=== PATIENT | female | born 1990 | race Caucasian/White ===

== ENCOUNTER 2018-12-18 19:45 | Inpatient (IN) | payer OTHER ==
--- NOTE | 2018-12-18 20:56 | HP ---
Past Medical History - Admission History of Present Illness: 28 yo @ 40 3/7 days by first trimester ultrasound, EDC 12/15/2018 complicated by: 1. Maternal Obesity, Starting BMI 33 Weight gain total 13 lbs Most recent EFW 3484 (59%) 12/05/2018 Reassuring testing Early GCT 81 28 wk GCT 111 2. 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 Declines aneuploidy screening Patient presents with chief complaint of sponatneous leakage of clear fluid at 1400 today and irregular contractions. She reports movement and denies vaginal bleeding. She was confirmed ruptured upon presentation and was found to be 1 cm dilated. History Source: Patient Limitations to Obtaining History: No Limitations - Past Medical History Cardiovascular: No: HTN Pulmonary: No: Asthma ...: 1 ...Para: 0 ...EDC by Dates: 12/15/18 ...EDC by Sono: 12/15/18 Heme/Onc: No: Anemia - Past Surgical History Hx Myomectomy: No Hx Transabdominal Cerclage: No Additional Surgical History: Accessory navicular bone removal - Alcohol/Substance Use Hx Alcohol Use: No History of Substance Use: reports: None - Social History Usual Living Arrangement: Yes: With Spouse History of Recent Travel: No Home Medications - Allergies Allergies/Adverse Reactions: Allergies Allergy/AdvReac Type Severity Reaction Status Date / Time No Known Allergies Allergy Verified 12/18/18 21:00 Family Disease History - Family Disease History Family History: Denies Review of Systems - Review of Systems Constitutional: reports: No Symptoms Cardiovascular: reports: No Symptoms Respiratory: reports: No Symptoms Gastrointestinal: reports: No Symptoms Genitourinary: reports: No Symptoms Musculoskeletal: reports: No Symptoms Neurological: reports: No Symptoms Endocrine: reports: No Symptoms Psychiatric: reports: No Symptoms Physical Exam - Maternity Constitutional: Yes: Well Nourished, No Distress, Calm Cardiovascular: Yes: Regular Rate and Rhythm Lungs: Clear to auscultation - Abdominal Exam/OB Fundal Height: 40 Number of Fetuses: Single Presentation: Vertex Contractions: Yes Regularity: Irregular Intensity: Mild/Mod Monitor Mode: External Heart Rate (range): 140 Category: I Accelerations: Non-Uniform Decelerations: None - Vaginal Exam/OB Vaginal Bleediing: No Speculum Exam: No Nitrazine Test: Positive Amniotic Fluid: Yes: Clear - Physical Exam Psychiatric: Yes: Alert, Oriented - Labs Lab Results: PNL: A positive, antibody negative; RPR NR; HBS Ag negative; HIV negative; Rubella immune; Varicella immune; Parvo immune; GCT WNL (early and 28 wk); GBS neg; Inheritest Ashkenazi panel WNL Hemorrhage Risk Assessment - Risk Factors Medium Risk Factors: Yes: None High Risk Factors: Yes: None Risk Score: 1 Risk Level: Medium Risk Assessment/Plan 28 yo @ 40 + wks PROM, early labor 1. Admit to L&D 2. GBS negative 3. Decliens offer for pain medication 4. Will offer pain medication upon patient request
[2018-12-18] MEDS ORDERED: BUTORPHANOL TARTRATE 1 MG/ML VIAL IVPB ONE (21:10)
[2018-12-18] MEDS ORDERED: PROMETHAZINE HCL 25 MG/1 ML VIAL IVPUSH ONE (21:10)
[2018-12-18] MEDS ORDERED: ELECTROLYTE-148 SOLN 1,000 ML IV SCH (21:15)
[2018-12-18 21:55] LABS: BASO % 0.1 % (0-2.0); EOS % 0.2 % (0-4.5); HEMATOCRIT 30.5 % (32.4-45.2); HEMOGLOBIN 10.6 GM/dL (10.7-15.3); LYMPH % 14.3 % (8-40); MCH 29.3 pg (25.7-33.7); MCHC 34.8 g/dl (32.0-36.0); MEAN CELL VOLUME 84.2 fl (80-96); MEAN PLT VOLUME 8.8 fl (7.5-11.1); MONO % 5.4 % (3.8-10.2); PLATELET COUNT 212 K/MM3 (134-434); RBC 3.63 M/mm3 (3.60-5.2); WHITE BLOOD COUNT 16.2 K/mm3 (4.0-10.0)
[2018-12-18 22:09] LABS: INR 0.92 (0.83-1.09); PROTHROMBIN TIME (PATIENT) 10.8 SEC (9.7-13.0)
[2018-12-18 22:11] LABS: ACTIVATED PTT 25.1 SECONDS (25.2-36.5)
[2018-12-18 22:12] LABS: ANION GAP 7 MMOL/L (8-16); BLOOD UREA NITROGEN 9 mg/dL (7-18); CALCIUM 9.3 mg/dL (8.5-10.1); CHLORIDE 107 mmol/L (98-107); CO2 23 mmol/L (21-32); CREATININE 0.6 mg/dL (0.55-1.3); GLUCOSE,RANDOM 102 mg/dL (74-106); SODIUM 137 mmol/L (136-145)
[2018-12-18] MEDS ORDERED: BUTORPHANOL TARTRATE 1 MG/ML VIAL ONE ×2 (22:59)
[2018-12-18] MEDS ORDERED: PROMETHAZINE HCL 25 MG/1 ML VIAL ONE (23:00)
[2018-12-19] MEDS ORDERED: ONDANSETRON 4 MG/2 ML VIAL IVPB ONE (03:00)
[2018-12-19] MEDS ORDERED: FENTANYL/BUPIVACAINE/NS/PF - PCEA - 50 ML DISP.SYRIN EP ONE (03:11)
[2018-12-19] MEDS ORDERED: LIDO 2%/EPI 1:200000 PRESRVFRE (20 ML SDVIAL) ONE (03:13)
[2018-12-19] MEDS ORDERED: NALOXONE HCL 0.4 MG/ML VIAL IVPUSH PRN (03:18)
[2018-12-19] MEDS ORDERED: ONDANSETRON 4 MG/2 ML VIAL ONE ×2 (03:18→04:56)
[2018-12-19] MEDS ORDERED: FENTANYL/BUPIVACAINE/NS/PF - PCEA - 50 ML DISP.SYRIN EP SCH (03:30)
[2018-12-19] MEDS ORDERED: PHENYLEPHRINE HCL 10 MG/1 ML SINGLE DOSE VIAL ONE (03:40)
[2018-12-19] MEDS ORDERED: ePHEDrine SULFATE 50 MG/1 ML AMPULE ONE ×2 (04:44→07:08)
[2018-12-19] MEDS ORDERED: CITRIC ACID/SODIUM CITRATE 30 ML UNIT-DOSE CUP PO ONE (06:23)
--- NOTE | 2018-12-19 06:23 | PN ---
Ante-Partal Exam - Subjective Subjective: Called to patient bedside for persistent tachycardia 190s - 200s Mod variability Patient reports no pain with contractions Vital Signs: Vital Signs Temperature Pulse Rate 85 12/19/18 05:30 Respiratory Rate 18 12/19/18 05:30 Blood Pressure 121/59 L 12/19/18 05:30 O2 Sat by Pulse Oximetry (%) 100 12/19/18 05:30 Bleeding: No Headache: No Visual changes: No Right upper quadrant pain: No - Contractions Contractions: Yes Regularity: Regular Intensity: Mild/Mod Monitor Mode: External - Exam during Labor Heart Rate: 180 Variability: Moderate Category: I Monitor Accelerations: Absent Monitor Decelerations: None Exam: Vaginal Dilatation (cm): 3 Effacement (%): 70 Amniotic Membrane Status: Ruptured Station: -2 - Intrapartum Hemorrhage Risk Medium Risk Factors: None High Risk Factors: None Risk Score: 0 Risk Level: Low Risk - Assessment/Plan Assessment/Plan: 28 yo in early labor, s/p epidural with persistent tachycardia O2 via facemask given, change in maternal position to L lateral, R lateral and knee chest without improvement in heart rate Cervix 3 cm Contractions Q 5-7 minutes heart rate without improvemetn and remote from delivery Will plan for delivery Discussed risks including but not limited to infection, bleeding requiring transfusion and damage to surrounding organs such as the bowel or bladder. Discussed risk of injury to infant. Discussed risk of wound infection and separation. Discussed need for planning of future children and possibility of abnormal placentation. All questions answered. Patient expressed understanding. Nursing and OR staff notified. Will proceed to OR
[2018-12-19 06:53] VITALS: BMI 35.6
[2018-12-19] MEDS ORDERED: morphine SULFATE/Preservative Free 0.5 MG/ML (1cc Syringe) ONE ×4 (07:04)
[2018-12-19] MEDS ORDERED: KETOROLAC TROMETHAMINE 30 MG/1 ML VIAL ONE (07:07)
[2018-12-19] MEDS ORDERED: SODIUM CHLORIDE 0.9% P/F 10 ML VIAL IJ ONE (07:10)
[2018-12-19] MEDS ORDERED: ceFAZolin SODIUM 1 GM VIAL ONE (07:10)
[2018-12-19] MEDS ORDERED: OXYTOCIN 10 UNITS/ML VIAL ONE (07:18)
[2018-12-19] MEDS ORDERED: OXYTOCIN 20 UNITS in 0.9% NS 20 UNIT/1,000 ML INFUS.BAG IV ONE (07:32)
--- NOTE | 2018-12-19 08:16 | PN ---
"Delivery - Delivery Section: Primary Episiotomy/Laceration: None EBL (cc): 600 Delivery, Single - Condition of Infant Gender: Male Position: OP - 1 Minute Total Score: 9 5 Minutes Total Score: 9 - Feeding Plan Initial Plan: Exclusive throughout hospitalization Remarks - Remarks Remarks: Findings: male , 9,9; wt 7 lb 15 oz; 20.5 inches; normal tubes and ovaries bilaterally; nuchal cord x 3; OP position Surgeon: Brandin | Assist; LEV Mustafa | Anesthesia: Guon Fluids: 1300 | UOP: 300 Dx: Nonreassuring heart rate Dictation: [id number]"
[2018-12-19 09:11] LABS: ARTERIAL BLD GAS O2 SATURATION 4.5 % (90-98.9); ARTERIAL BLOOD GAS PCO2 62.9 mmHg (35-45); ARTERIAL BLOOD GAS PO2 6.8 mmHg (80-100); ARTERIAL BLOOD GAS pH 7.27 (7.35-7.45)
--- NOTE | 2018-12-19 09:13 | OP ---
DATE OF OPERATION: 12/19/2018 ATTENDING PHYSICIAN RESPONSIBLE FOR SIGNING REPORT: Adina Ghotra MD PREOPERATIVE DIAGNOSES: Intrauterine , 40+ weeks, nonreassuring tracing. POSTOPERATIVE DIAGNOSES: Intrauterine , 40+ weeks, nonreassuring tracing. SURGEON: Adina Ghotra MD ASSIST: LEV Mustafa ANESTHESIA: Buck Morrell MD FLUIDS GIVEN: 1300. URINE OUTPUT: 300. ESTIMATED BLOOD LOSS: 600. FINDINGS: Male , Apgars 9 and 9, weight 7 pounds 15 ounces, 20-1/2 inches. Normal tubes and ovaries bilaterally. Nuchal cord x3 and OP position. INDICATIONS: Patient is a 28-year-old 1, para 0 at 40+ weeks who presented after spontaneous rupture of membranes and eventually progressed into labor. She received an epidural, had heart rate changes that did not respond to change in maternal position, O2 via face mask, or IV fluid bolus. She was counseled regarding expectant management. She was found to be 3 cm dilated. Given she was remote from delivery, she was counseled regarding . Risks, benefits, alternatives , and complications of the procedure were discussed including infection; bleeding; damage to surrounding organs such as bowel, bladder; injury to ; need of planning of future children; and possible placental abnormalities in future pregnancies. She expressed understanding, was brought to the operating room. DESCRIPTION OF PROCEDURE: When anesthesia was found to be adequate, patient was prepped and draped in normal sterile fashion, placed in dorsal supine position with a leftward tilt. An approximately 11-cm skin incision was made, and it was carried down to the underlying rectus fascia using the knife. The fascia was nicked in midline, extended laterally using the Gautam scissors. The inferior portion of the fascial incision was tented up using Elinor clamps and dissected off the underlying rectus muscle using Gautam scissors. Attention was brought to the superior portion where, in similar fashion, was tented up using Elinor clamps, dissected off the underlying rectus muscles. The rectus muscles were in midline. The peritoneum was entered sharply and the vesicouterine peritoneum was entered and extended laterally and the hysterotomy was performed with a knife and extended superolaterally using the bandage scissors. The 's head was found to be in direct Occiput Posterior position. The head was brought to the hysterotomy site where it was delivered without difficulty. Nuchal cord noted x3 and was removed. Shoulders and body were delivered without difficulty. Cord was clamped and cut. Cord blood and cord gases were collected and sent. was handed to waiting NICU staff. The placenta was manually extracted. The uterus was cleared of all clot and debris. The uterus was closed using 0 Biosyn in a running layer. Second layer was an imbricated layer. Good hemostasis was noted. The vesicouterine peritoneum was reapproximated. The bilateral adnexa were found to be normal appearing. The gutters were cleared of all clot and debris. Irrigation was performed. Peritoneum was closed using 2-0 Biosyn in running fashion. The rectus muscles were reapproximated using 2-0 Biosyn in an interrupted fashion. The fascia was closed using 0 Vicryl in a running fashion. The subcutaneous fat was closed using 0 Vicryl in a running fashion. The skin was reapproximated using 4 -0 Monocryl. The patient tolerated the procedure well. Estimated blood loss was 600 mL. Patient was brought to recovery room in stable condition. Sandi [id number] MTDD
[2018-12-19 09:14] LABS: VENOUS PC02 45.8 mmHg (38-52); VENOUS PH 7.34 (7.32-7.42); VENOUS PO2 24.9 mmHg (28-48)
[2018-12-19] MEDS ORDERED: IBUPROFEN 600 MG TABLET (FP) PO PRN (09:36)
[2018-12-19] MEDS: OXYTOCIN 20 UNITS in 0.9% NS 20 UNIT/1,000 ML INFUS.BAG IV SCH ×2 (10:00→21:20)
[2018-12-19] MEDS ORDERED: METHYLERGONOVINE MALEATE 0.2 MG/1 ML AMP IM PRN (10:06)
[2018-12-19] MEDS ORDERED: TUBERCULIN PPD 5 TU/0.1ML SYRINGE (IN PATIENT USE ONLY) ID ONE (11:00)
[2018-12-19] MEDS: ACETAMINOPHEN 325 MG TABLET (FP) PO PRN (20:25)
[2018-12-19] MEDS: IBUPROFEN 600 MG TABLET (FP) PO PRN (20:25)
[2018-12-20] MEDS: OXYTOCIN 20 UNITS in 0.9% NS 20 UNIT/1,000 ML INFUS.BAG IV SCH (00:40)
[2018-12-20 06:13] LABS: BASO % 0.1 % (0-2.0); EOS % 0.2 % (0-4.5); HEMATOCRIT 21.7 % (32.4-45.2); HEMOGLOBIN 7.5 GM/dL (10.7-15.3); LYMPH % 16.3 % (8-40); MCH 29.3 pg (25.7-33.7); MCHC 34.4 g/dl (32.0-36.0); MEAN PLT VOLUME 8.2 fl (7.5-11.1); MONO % 6.4 % (3.8-10.2); PLATELET COUNT 162 K/MM3 (134-434); RBC 2.55 M/mm3 (3.60-5.2); RDW 14.2 % (11.6-15.6); WHITE BLOOD COUNT 12.1 K/mm3 (4.0-10.0)
[2018-12-20] MEDS: ACETAMINOPHEN 325 MG TABLET (FP) PO PRN ×5 (06:30→23:28)
[2018-12-20] MEDS: IBUPROFEN 600 MG TABLET (FP) PO PRN ×5 (06:30→23:29)
--- NOTE | 2018-12-20 06:50 | PN ---
Progress Note (short form) - Note Progress Note: pod1 s/p c/s has mild low abdominal cramps, comfortable, no dizziness , no active vaginal bleeding CBC, BMP 12/20/18 05:56 12/18/18 21:30 Last Vital Signs Temp Pulse Resp BP Pulse Ox 97.7 F 80 18 100/55 L 100 12/20/18 06:00 12/20/18 06:00 12/20/18 06:00 12/20/18 06:00 12/19/18 09:40 abdomen soft, no distension, no cva uterus firm lochia mild , no active vaginal bleeding no calf tenderness impression POD1 , anemia, asymptomatic, no active vaginal bleeding plan ambulate, if symptomatic may need transfusion will repeat cbc in am advance diet pain management
[2018-12-20] MEDS ORDERED: DIPHTH,PERTUSS(ACELL),TET 0.5 ML DISP.SYRIN IM ONE (10:00)
[2018-12-20] MEDS ORDERED: BISACODYL 10 MG SUPP.RECT RC PRN (10:06)
[2018-12-20] MEDS: SIMETHICONE 80 MG TAB.CHEW (FP) PO PRN ×3 (10:32→18:21)
[2018-12-20] MEDS: SENNOSIDES/DOCUSATE COMBO (SENNA PLUS) TABLET (UD) PO SCH (21:08)
--- NOTE | 2018-12-21 01:46 | PN ---
Post Progress Note - Subjective Subjective: Patient without acute complaints. Reports tolerating oral intake without nausea or vomiting. Ambulating without dizziness. Denies fevers or chills. Pain well controlled with oral pain medication. without difficulty. Passing flatus. Post Day: 2 Type of Delivery: Primary C/S Vital Signs: Vital Signs Temperature 98.9 F 12/20/18 22:00 Pulse Rate 104 H 12/20/18 22:00 Respiratory Rate 18 12/20/18 22:00 Blood Pressure 132/76 12/20/18 22:00 O2 Sat by Pulse Oximetry (%) 100 12/19/18 09:40 Breast Exam: Yes: Soft Uterus: Yes: Fundus Firm, Fundus below umbilicus Incision: Yes: Dressing dry and intact. No: Redness, Oozing Abdomen/GI: Yes: Abdomen soft, Abdominal Distention (mild), Tender (mild incisional), Passing flatus, Tolerating PO Lochia: Yes: Serosa Lochia, amount: Small Extremities: Yes: Calves non-tender, Edema (trace) Activity: Ambulating - Labs Labs: CBC WBC 12.1 K/mm3 (4.0-10.0) H 12/20/18 05:56 RBC 2.55 M/mm3 (3.60-5.2) L 12/20/18 05:56 Hgb 7.5 GM/dL (10.7-15.3) L 12/20/18 05:56 Hct 21.7 % (32.4-45.2) L D 12/20/18 05:56 MCV 85.0 fl (80-96) 12/20/18 05:56 MCH 29.3 pg (25.7-33.7) 12/20/18 05:56 MCHC 34.4 g/dl (32.0-36.0) 12/20/18 05:56 RDW 14.2 % (11.6-15.6) 12/20/18 05:56 Plt Count 162 K/MM3 (134-434) D 12/20/18 05:56 MPV 8.2 fl (7.5-11.1) 12/20/18 05:56 Absolute Neuts (auto) 9.3 K/mm3 (1.5-8.0) H 12/20/18 05:56 Neutrophils % 77.0 % (42.8-82.8) 12/20/18 05:56 Lymphocytes % 16.3 % (8-40) 12/20/18 05:56 Monocytes % 6.4 % (3.8-10.2) 12/20/18 05:56 Eosinophils % 0.2 % (0-4.5) 12/20/18 05:56 Basophils % 0.1 % (0-2.0) 12/20/18 05:56 Nucleated RBC % 0 % (0-0) 12/20/18 05:56 Assessment/Plan 28 yo POD # 2 s/p primary CD, afebrile, vital signs stable, doing well 1. Continue routine postoperative care. 2. Encourage ambulation and incentive spirometer use 3. Continue oral pain medication 4. Anticipate discharge home postoperative day #3
[2018-12-21] MEDS: IBUPROFEN 600 MG TABLET (FP) PO PRN ×4 (07:44→20:19)
[2018-12-21] MEDS: ACETAMINOPHEN 325 MG TABLET (FP) PO PRN ×4 (07:44→20:20)
[2018-12-21] MEDS: SIMETHICONE 80 MG TAB.CHEW (FP) PO PRN ×3 (07:44→20:22)
[2018-12-21 09:00] LABS: BASO % 0.2 % (0-2.0); EOS % 0.7 % (0-4.5); HEMATOCRIT 22.8 % (32.4-45.2); HEMOGLOBIN 7.7 GM/dL (10.7-15.3); LYMPH % 15.2 % (8-40); MCH 28.6 pg (25.7-33.7); MEAN CELL VOLUME 84.2 fl (80-96); MEAN PLT VOLUME 8.5 fl (7.5-11.1); MONO % 5.4 % (3.8-10.2); NEUT % 78.5 % (42.8-82.8); PLATELET COUNT 197 K/MM3 (134-434); RDW 14.7 % (11.6-15.6); WHITE BLOOD COUNT 11.3 K/mm3 (4.0-10.0)
[2018-12-21] MEDS: FERROUS SO4 325 MG TABLET (FP) PO SCH (21:25)
--- NOTE | 2018-12-21 22:27 | DS ---
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 A primary Delivery was performed for nonreassuring heart tracing. POD # 1 patient ambulated, voiding, passing gas, tolerating oral intake and with adequate pain control. Noted to have mild asymptomatic anemia She fulfilled all criteria for discharge POD #3 Condition: Good - Instructions Diet, Activity, Other Instructions: Physical activity Resume your normal everyday activity as tolerated no heavy lifting or exercise until seen by your surgeon. You may walk unlimited gricelda of and climb stairs. You may resume driving the car when you feel safe and comfortable behind the wheel. No sexual activity as instructed. Wound care If you have a bandage, leave it on, and keep dry for 48-72 hours. After that time discard the outer bandage. If they are tapes on the skin under the out of bandage leave them in place. They will peel off in the next 7 to 10 days. Do Not Peel them off. You may shower the day after surgery. If there are tapes present on the skin, you may shower over them. Diet There are no dietary restrictions. Eat healthy, high-fiber foods. Drink 6 to 8 glasses of liquid each day. This will assist in keeping your bowels are regular. Pain management You may take Tylenol or acetaminophen or Ibuprofen (for example, Motrin, Advil etc.) from my pain prescription medication is ordered should be taken as prescribed for moderate to severe pain. Call MD for any of the following: Severe pain not relieved by medication Fever of 101 or higher Excessive bleeding or drainage on dressing Inability to urinate regular diet, no intercourse, if heavy vaginal bleeding, fever, pain call md Referrals: Adina Ghotra MD [Staff Physician] - - Home Medications Comprehensive Discharge Medication List: Ambulatory Orders Ibuprofen [Motrin -] 600 mg PO QID #28 tablet 12/19/18
[2018-12-21] MEDS: SENNOSIDES/DOCUSATE COMBO (SENNA PLUS) TABLET (UD) PO SCH (23:39)
[2018-12-22] MEDS: ACETAMINOPHEN 325 MG TABLET (FP) PO PRN ×3 (00:31→10:02)
[2018-12-22] MEDS: IBUPROFEN 600 MG TABLET (FP) PO PRN ×3 (00:32→10:00)
[2018-12-22] MEDS: SIMETHICONE 80 MG TAB.CHEW (FP) PO PRN ×3 (00:32→10:00)
--- NOTE | 2018-12-22 07:00 | PN ---
Post Progress Note - Subjective Subjective: Patient without acute complaints. Reports tolerating oral intake without nausea or vomiting. Ambulating without dizziness. Denies fevers or chills. Pain well controlled with oral pain medication. without difficulty. Passing flatus. Post Day: 3 Type of Delivery: Primary C/S Vital Signs: Vital Signs Temperature 97.5 F L 12/21/18 22:00 Pulse Rate 100 H 12/21/18 22:00 Respiratory Rate 18 12/21/18 22:00 Blood Pressure 110/62 12/21/18 22:00 O2 Sat by Pulse Oximetry (%) 100 12/19/18 09:40 Breast Exam: Yes: Soft Uterus: Yes: Fundus Firm, Fundus below umbilicus Incision: Yes: Sutures intact. No: Redness, Oozing Abdomen/GI: Yes: Abdomen soft, Tender (mild incisional), Passing flatus, Tolerating PO. No: Abdominal Distention Lochia: Yes: Serosa Lochia, amount: Small Extremities: Yes: Calves non-tender, Edema (trace) Activity: Ambulating - Labs Labs: CBC WBC 11.3 K/mm3 (4.0-10.0) H 12/21/18 08:00 RBC 2.70 M/mm3 (3.60-5.2) L 12/21/18 08:00 Hgb 7.7 GM/dL (10.7-15.3) L 12/21/18 08:00 Hct 22.8 % (32.4-45.2) L 12/21/18 08:00 MCV 84.2 fl (80-96) 12/21/18 08:00 MCH 28.6 pg (25.7-33.7) 12/21/18 08:00 MCHC 34.0 g/dl (32.0-36.0) 12/21/18 08:00 RDW 14.7 % (11.6-15.6) 12/21/18 08:00 Plt Count 197 K/MM3 (134-434) D 12/21/18 08:00 MPV 8.5 fl (7.5-11.1) 12/21/18 08:00 Absolute Neuts (auto) 8.9 K/mm3 (1.5-8.0) H 12/21/18 08:00 Neutrophils % 78.5 % (42.8-82.8) 12/21/18 08:00 Lymphocytes % 15.2 % (8-40) 12/21/18 08:00 Monocytes % 5.4 % (3.8-10.2) 12/21/18 08:00 Eosinophils % 0.7 % (0-4.5) D 12/21/18 08:00 Basophils % 0.2 % (0-2.0) 12/21/18 08:00 Nucleated RBC % 0 % (0-0) 12/21/18 08:00 Assessment/Plan 28 yo POD # 3 s/p primary CD, afebrile, vital signs stable, doing well 1. Patient stable for discharge home today. 2. Patient encouraged to contact MD for: - Severe pain not controlled by oral pain medication - Fevers or chills - Nausea or vomiting, intolerance of oral intake - Incision redness, tenderness or discharge 3. Patient to follow up in office in 1-2 weeks for incision check, 4-6 weeks for visit
[2018-12-22 08:43] LABS: BASO % 0.2 % (0-2.0); EOS % 1.6 % (0-4.5); HEMATOCRIT 22.6 % (32.4-45.2); HEMOGLOBIN 7.8 GM/dL (10.7-15.3); LYMPH % 17.4 % (8-40); MCH 29.3 pg (25.7-33.7); MCHC 34.3 g/dl (32.0-36.0); MEAN CELL VOLUME 85.2 fl (80-96); MEAN PLT VOLUME 8.5 fl (7.5-11.1); MONO % 5.8 % (3.8-10.2); PLATELET COUNT 216 K/MM3 (134-434); RBC 2.65 M/mm3 (3.60-5.2); RDW 14.6 % (11.6-15.6); WHITE BLOOD COUNT 10.7 K/mm3 (4.0-10.0)
[2018-12-22] MEDS ORDERED: PRENATAL VITAMINS W/ FOLIC ACID TABLET (FP) PO SCH (10:00)
[2018-12-22] MEDS: FERROUS SO4 325 MG TABLET (FP) PO SCH (10:00)
[2018-12-22 15:09] VITALS: BP 130/82; PULSE 93; TEMP 97.8
--- NOTE | 2018-12-27 17:25 | PATH ---
Surgical Pathology Report Patient Name: PATRICE CLINE [facility]. Rec. 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 Electronically Signed Ana Ramachandran M.D. Gross Description The specimen is received fresh labeled placenta and is a 448 gram, 19.0 x 15.0 x 2.6 cm. placenta with attached membranes and umbilical cord. The attached membranes are solis, translucent with focal opacities and insert marginally. The umbilical cord measures 27 cm. in length and averages 1 cm. in diameter. The cord inserts eccentrically, 6.5 cm. to the nearest margin. No true knots or strictures are identified. Cut surface of the umbilical cord reveals only 2 vessels. The surface is lipscomb-blue with minimal fibrin deposition and appropriate caliber vessels. The maternal surface is red-brown with focal defects. Sectioning reveals red-brown, spongy parenchyma. No lesions are identified. Campus Administrative Assistant sections are submitted in three cassettes as follows: 1- membrane rolls and umbilical cord; 2-3- full thickness sections of placenta. 12/26/2018 [facility]12/26/2018
== END 2018-12-22 13:45 | disposition home or self-care (01) | DRG 788 ==
LOC: JDEL 19:45 → JLDR 20:30 → J3W 12-19 09:48
PROVIDERS: ADMIT Obstetrics & Gynecology; ATTEND Obstetrics & Gynecology
PROC: 10D00Z1 Extraction of Products of Conception, Low, Open Approach (ICD-10-PCS; principal; 2018-12-19)
DX: O76 Abnormality in fetal heart rate and rhythm complicating labor and delivery (principal); O99.213 Obesity complicating pregnancy, third trimester; E66.8 Other obesity; O99.013 Anemia complicating pregnancy, third trimester; D64.9 Anemia, unspecified; Z3A.40 40 weeks gestation of pregnancy; Z68.33 Body mass index [BMI] 33.0-33.9, adult; Z37.0 Single live birth
CPT/HCPCS: 36415; 36600; 80048; 82803; 85025; 85610; 85730; 86593; 86850; 86900; 86901; 88307-TC; 90715